=== PATIENT | female | born 1980 | race Caucasian/White ===

== ENCOUNTER → 2024-12-15 | Outpatient (CLI) | payer OTHER, SELFPAY ==
--- NOTE | 2024-12-15 11:55 | RAD_ITS ---
PROCEDURE: L/S SPINE COMP/W BENDING VIEWS 12/15/2024 REASON FOR EXAM: POSTLAMINECTOMY SYNDROME, NOT ELSEWHERE CLASSIFIED TECHNIQUE: 8 views of the lumbar spine FINDINGS: Vertebrae: No acute fracture. Discs: Disc space narrowing and osteophyte formation at L5/S1 consistent with degenerative disc disease. Alignment: 2 mm of anterolisthesis of L4 on L5 which is unchanged on the flexion and extension views. Mild levoscoliosis centered at L2. Other: RAD/L/S Spine Comp/w Bending Views IMPRESSION: Mild levoscoliosis with diffuse degenerative disc disease. Reading Location: [id number]
== END | disposition home or self-care (01) ==
LOC: RAD 11:52
PROVIDERS: PCP Family Medicine; Referring Provider Anesthesiology Pain Medicine; Visit Provider Anesthesiology Pain Medicine
DX: M96.1 Postlaminectomy syndrome, not elsewhere classified (principal)
CPT/HCPCS: 72114